=== PATIENT | female | born 1975 | race American Indian/Alaskan Native ===

== ENCOUNTER 2017-02-11 13:27 | Outpatient (CLI) | payer BC ==
--- NOTE | 2017-02-11 14:42 | Mammography Report ---
BILATERAL MAMMOGRAM: FINDINGS: Baseline mammogram. The breasts are almost entirely fat (<25% glandular). No mass, distortion, suspicious calcification, or skin change is seen. CAD was utilized. IMPRESSION: Negative mammogram. There is no mammographic evidence of malignancy. RECOMMENDATION: Follow-up per ACS guidelines. BI-RADS CATEGORY: 1 = Negative ACR BI-RADS MAMMOGRAPHIC CODES: 0 = Needs additional imaging evaluation; 1 = Negative; 2 = Benign; 3 = Probably benign; 4 = Suspicious; 5 = Malignant; 6 = Known biopsy-proven malignancy COMMENT: 1. Dense breast tissue, i.e., adenosis, fibrocystic changes, etc., may obscure an underlying neoplasm. 2. Approximately 10% of cancers are not detected with mammography. 3. A negative mammography report should not delay biopsy if a clinically suspicious mass is present. COMMENT: Patient follow-up letters are generated in [employer].
== END 2017-02-11 13:28 | disposition home or self-care (01) ==
LOC: SPVWC 13:27
PROVIDERS: ATTEND Obstetrics & Gynecology
DX: Z12.31 Encounter for screening mammogram for malignant neoplasm of breast (principal)
CPT/HCPCS: 77067; G0202

== ENCOUNTER 2021-07-28 11:26 | Outpatient (CLI) | payer BC ==
--- NOTE | 2021-07-31 15:34 | Mammography Report ---
DIGITAL SCREENING MAMMOGRAM WITH CAD, 07/28/2021 CLINICAL INFORMATION / INDICATION: Routine screening TECHNIQUE: Digital bilateral 2D mammography was obtained in the craniocaudal and mediolateral obliqu e projections. This examination was interpreted with the benefit of Computer-Aided Detection analysis . COMPARISON: 02/11/2017, missing right cc view FINDINGS: Breast Density: There are scattered areas of fibroglandular density. No dominant mass, suspicious calcifications, or architectural distortion in the right breast. In the anterior depth of the left breast, retroareolar region, at 12:30, a new 5 mm nodule is seen. IMPRESSION: New nodule on the left Follow up recommendation: Left breast ultrasound and additional mammographic views if needed BI-RADS Category 0: INCOMPLETE. Needs additional imaging evaluation and/or prior mammograms for spike buchanan. A "normal" or negative report should not discourage follow up or biopsy of a clinically significant f inding. A written summary of these findings will be mailed to the patient. The patient will be entered into a mammography reporting system which will generate a reminder letter for the patient's next appointmen t at the appropriate interval. The [employer] recommends yearly mammograms starting at age 40 and continuing as l kimber[place] as a woman is in good health. Breast MRI is recommended for women with an approximate 20-25% or greater lifetime risk of breast cancer, including women with a strong family history of breast or ova chito cancer or who have been treated for Hodgkin's disease. Signer Name: Sascha Chavis MD Signed: 07/31/2021 3:30 PM Workstation Name: [id number]
== END 2021-07-28 11:27 | disposition home or self-care (01) ==
LOC: MAMMO 11:26
PROVIDERS: ATTEND Family Medicine
DX: Z12.31 Encounter for screening mammogram for malignant neoplasm of breast (principal)
CPT/HCPCS: 77067

== ENCOUNTER 2021-09-11 10:50 | Outpatient (CLI) | payer BC ==
--- NOTE | 2021-09-12 10:03 | Ultrasound Report ---
LEFT DIGITAL DIAGNOSTIC MAMMOGRAM WITH CAD 09/11/2021 LEFT LIMITED BREAST ULTRASOUND INDICATION: Abnormal screening mammogram. Screening recall of the left breast for nodule. TECHNIQUE: Digital left mammographic imaging was performed. Spot compression views were obtained. Li mited ultrasound was performed. This examination was interpreted with the benefit of Computer-Aided D etection (CAD) analysis. COMPARISON: Screening mammogram, 07/08/2021 and 02/11/2017 FINDINGS: Breast Density: There are scattered areas of fibroglandular density. MAMMOGRAPHIC FINDINGS: Spot compression views of the retroareolar left breast demonstrate near comple te resolution of the previously noted density. This has the appearance of asymmetric fibroglandular t issue and is similar when compared to previous mammogram. No suspicious mammographic finding is ident ified. ULTRASOUND FINDINGS: Targeted ultrasound evaluation was performed of the area of interest. Sonograp hic evaluation of the upper outer retroareolar left breast demonstrates an oval circumscribed hypoech oic masslike area measuring 0.7 x 0.3 cm. There is no internal vascularity. This corresponds to the d ensity seen on the mammogram. There is no suspicious solid mass or shadowing. IMPRESSION: 1. Mammographic and sonographic findings as above most likely related to asymmetric fibroglandular t issue. No suspicious mammographic or sonographic finding is identified. A six-month follow-up left ma mmogram and ultrasound is recommended to confirm stability. Follow up recommendation: Short term follow up in 6 months. BI-RADS Category 3: PROBABLY BENIGN. Followup in 6 months. A "normal" or negative report should not discourage follow up or biopsy of a clinically significant f inding. A written summary of these findings will be mailed to the patient. The patient will be entered into a mammography reporting system which will generate a reminder letter for the patient's next appointmen t at the appropriate interval. According to the [employer], yearly mammograms are recommended starting at age 40 and continuing as long as a woman is in good health. Breast MRI is recommended for women with an mitzi roximately 20-25% or greater lifetime risk of breast cancer, including women with a strong family his tory of breast or ovarian cancer and women who have been treated for Hodgkin's disease. Signer Name: Melanie Murphy MD Signed: 09/12/2021 9:59 AM Workstation Name: [id number]
== END 2021-09-11 10:51 | disposition home or self-care (01) ==
LOC: US 10:50
PROVIDERS: ATTEND Family Medicine
DX: R92.8 Other abnormal and inconclusive findings on diagnostic imaging of breast (principal)